=== PATIENT | female | born 1985 | race Caucasian/White ===

== ENCOUNTER → 2016-12-23 | Outpatient (CLI) | payer BC ==
[2016-12-23 10:17] LABS: BUN/CREATININE RATIO 14 (0-10)
== END ==
LOC: LAB 08:46
PROVIDERS: Internal Medicine Sports Medicine
DX: M32.9 Systemic lupus erythematosus, unspecified (principal)
CPT/HCPCS: 36415; 80053; 86039; 86160

== ENCOUNTER → 2017-04-15 | Outpatient (CLI) | payer BC ==
[2017-04-15 09:29] LABS: HEMOGLOBIN 16.2 gm/dl (12.3-15.3); RED BLOOD COUNT 5.4 M/UL (4.00-5.10); WHITE BLOOD COUNT 3.7 K/UL (4.5-11.0)
[2017-04-15 09:54] LABS: BUN/CREATININE RATIO 11 (0-10)
== END ==
LOC: LAB 08:31
PROVIDERS: Internal Medicine
DX: Z00.00 Encounter for general adult medical examination without abnormal findings (principal); Z13.220 Encounter for screening for lipoid disorders; Z02.89 Encounter for other administrative examinations; Z84.2 Family history of other diseases of the genitourinary system; R30.0 Dysuria; R80.9 Proteinuria, unspecified
CPT/HCPCS: 36415; 80053; 80061; 81001; 82043; 82570; 84439; 84443; 85025

== ENCOUNTER → 2020-10-30 | Outpatient (CLI) | payer BC ==
[~2020-10-30] MED LIST: OMNICEF 300 MG300 MG PO; PROVENTIL HFA6.7 GM INH; ZITHROMAX250 MG PO
[2020-10-30 11:06] LABS: HEMOGLOBIN 15.8 gm/dl (12.3-15.3); RED BLOOD COUNT 5.36 M/UL (4.00-5.10); WHITE BLOOD COUNT 3.7 K/UL (4.5-11.0)
[2020-10-30 11:27] LABS: BUN/CREATININE RATIO 10 (0-10)
== END ==
LOC: LAB 10:42
PROVIDERS: Internal Medicine
DX: D89.89 Other specified disorders involving the immune mechanism, not elsewhere classified (principal); M25.50 Pain in unspecified joint; M32.9 Systemic lupus erythematosus, unspecified; Z92.29 Personal history of other drug therapy
CPT/HCPCS: 36415; 80053; 81001; 82570; 84156; 85025

== ENCOUNTER 2021-04-05 18:07 | Emergency (ER) | payer BC ==
[2021-04-05 19:23] LABS: HEMOGLOBIN 14.7 gm/dl (12.3-15.3); RED BLOOD COUNT 4.83 M/UL (4.00-5.10); WHITE BLOOD COUNT 5.5 K/UL (4.5-11.0)
[2021-04-05 19:43] LABS: BUN/CREATININE RATIO 15 (0-10)
[2021-04-05] MEDS ORDERED: OMNICEF 300 MG300 MG PO (21:07)
[2021-04-05] MEDS ORDERED: ZITHROMAX250 MG PO (21:07)
[2021-04-05] MEDS ORDERED: PROVENTIL HFA6.7 GM INH (21:07)
== END 2021-04-05 23:01 | disposition home or self-care (01) ==
LOC: ER1 18:07
PROVIDERS: Physician Assistant
DX: Z23 Encounter for immunization (principal); U07.1 COVID-19; J12.82 Pneumonia due to coronavirus disease 2019
CPT/HCPCS: 71045; 80053; 82550; 82553; 83615; 83874; 84484; 85025; 85652; 86140; 93005; 99284; J7030; M0245; U0002

== ENCOUNTER → 2021-07-11 | Outpatient (CLI) | payer BC | LOC: NM 06-25 15:00 → ECHO 06-27 13:15 | DX: R07.9 Chest pain, unspecified (principal) | CPT/HCPCS: ECHO; 93306 ==

== ENCOUNTER → 2021-09-05 | Outpatient (CLI) | payer BC ==
[2021-09-05 09:15] LABS: HEMOGLOBIN 17.1 gm/dl (12.3-15.3); RED BLOOD COUNT 5.53 M/UL (4.00-5.10)
[2021-09-05 09:39] LABS: BUN/CREATININE RATIO 17 (0-10)
[2021-09-06 10:13] LABS: COMPLEMENT C3, SERUM 135 mg/dL (82-167); COMPLEMENT C4, SERUM 35 mg/dL (12-38)
[2021-09-08 16:10] LABS: THYROGLOBULIN ANTIBODY <1.0 IU/mL (0.0-0.9); THYROID PEROXIDASE (TPO) AB 12 IU/mL (0-34); THYROID PEROXIDASE (TPO) AB <8 IU/mL (0-34)
== END ==
LOC: LAB 08:35
PROVIDERS: Nurse Practitioner Family
DX: R76.0 Raised antibody titer (principal); R53.83 Other fatigue; M25.50 Pain in unspecified joint; R07.9 Chest pain, unspecified; M32.9 Systemic lupus erythematosus, unspecified
CPT/HCPCS: 36415; 71046; 80053; 81001; 82570; 84156; 84439; 84443; 85025; 86160; 86162; 86376; 86800